=== PATIENT | male | born 1970 | race Two or more races ===

== ENCOUNTER 2024-05-22 22:20 | Emergency (ER) | payer MEDICAID, SELFPAY ==
[2024-05-22 22:21] VITALS: BMI 40.9
[2024-05-22 22:27] VITALS: BP 153/92; PULSE 86; RESP 18; TEMP 36.8; O2SAT 96
--- NOTE | 2024-05-22 22:50 | PD.EDRME ---
Rapid Medical Screening Exam RME Arrival date/time: 05/22/24 22:20 53M with history of DM (pills only) presents to ED with 540 BS and some generalized weakness. Chief Complaint: Recheck/Abnormal Lab/Rx Time Seen by Provider: 05/22/24 23:39 Vital signs: Vital Signs Temperature 98.3 F 05/22/24 22:27 Pulse Rate 86 05/22/24 22:27 Respiratory Rate 18 05/22/24 22:27 Blood Pressure 153/92 H 05/22/24 22:27 Pulse Oximetry (%) 96 05/22/24 22:27 Oxygen Delivery Method Room Air 05/22/24 22:27
[2024-05-22 23:05] LABS: Beta Hydroxybutyrate 0.1 mmol/L (<0.6)
[2024-05-22 23:06] LABS: Basophils # (Auto) 0.1 Thou/mm3 (0.0-0.2); Basophils % (Auto) 1 % (0-2.5); Eosinophils # (Auto) 0.4 Thou/mm3 (0.0-0.5); Eosinophils % (Auto) 7 % (0-10); Hematocrit 41.2 % (41.0-53.0); Hemoglobin 14.6 g/dL (13.5-16.0); Immature Granulocytes % (Auto) 0 % (0-0); Immature Granulocytes Auto 0.02 Thou/mm3 (0.00-0.00); Lymphocytes # (Auto) 2.4 Thou/mm3 (1.0-4.8); Lymphocytes % (Auto) 41 % (10-50); Mean Corpuscular HGB Conc 35.4 g/dl (31.0-37.0); Mean Corpuscular Hemoglobin 30.5 pg (25.0-35.0); Mean Corpuscular Volume 86 fL (80-100); Monocytes # (Auto) 0.6 Thou/mm3 (0.0-0.8); Monocytes % (Auto) 10 % (0-12); Neutrophils # (Auto) 2.4 Thou/mm3 (1.8-7.7); Neutrophils % (Auto) 40 % (37-80); Nucleated Red Blood Cell % 0 /100 WBC (0); Platelet Count 146 Thou/mm3 (140-440); RDW Standard Deviation 37.1 fL (35.1-43.9); Red Blood Count 4.79 Miln/mm3 (4.50-5.90); White Blood Count 5.9 Thou/mm3 (3.8-10.6)
[2024-05-22 23:36] LABS: Alanine Aminotransferase 106 U/L (10-49); Albumin, Serum 4.3 gm/dL (3.5-5.0); Albumin/Globulin Ratio 1.4 (1.2-2.2); Alkaline Phosphatase 51 U/L (46-116); Anion Gap 5 (7-16); Aspartate Amino Transferase 50 U/L (0-34); BUN/Creatinine Ratio 12 Ratio (12-20); Blood Urea Nitrogen 13 mg/dL (9-23); Calcium 10.1 mg/dL (8.3-10.6); Calcium (Corrected) 10.1 mg/dL (8.5-10.1); Carbon Dioxide 27.4 mMol/L (20.0-31.0); Chloride 101 mMol/L (98-107); Creatinine (Component) 1.1 mg/dL (0.6-1.3); Estimated Creatinine Clearance 90.6 mL/min (>60); Osmolality,Calculated 287 (275-295); Potassium 4.2 mMol/L (3.4-5.1); Sodium 133 mMol/L (136-145); Total Protein 7.3 gm/dL (5.7-8.2); eGFR > 60 See Note
[2024-05-22 23:37] LABS: Glucose 477 mg/dL (74-106)
[2024-05-22 23:39] LABS: Bilirubin,Total 0.6 mg/dL (0.3-1.2)
--- NOTE | 2024-05-22 23:41 | PD.EDRECHK ---
ED Recheck Abnl Lab Rx-RME/HPI General Chief Complaint: Recheck/Abnormal Lab/Rx Stated Complaint: BS 540 Time Seen by Provider: 05/22/24 23:39 Arrival date/time: 05/22/24 22:20 53M with history of HTN and DM (pills only) presents to ED with 540 BS and some generalized weakness. Patient denies AMS, N/V, and SOB. Limitations: no limitations Related Data Home Medications ?Medication ?Instructions ?Recorded ?Confirmed metformin 1,000 mg tablet 1,000 mg PO BID 08/29/22 08/29/22 Allergies Allergy/AdvReac Type Severity Reaction Status Date / Time No Known Allergies Allergy Verified 09/08/17 11:10 Review of Systems Review of Systems Systems Reviewed: All systems reviewed, normal except as documented Constitutional Constitutional: Reports system reviewed and no additional complaints, except as documented, Reports as per HPI, Denies fever(s), Denies headache(s) and Reports weakness ENT Ears, Nose, Mouth, and Throat: Denies disequilibrium and Denies headache(s) Cardiovascular Cardiovascular: Reports system reviewed and no additional complaints, except as documented, Denies chest pain and Denies dyspnea Respiratory Respiratory: Reports system reviewed and no additional complaints, except as documented, Denies cough and Denies dyspnea Gastrointestinal Gastrointestinal: Reports system reviewed and no additional complaints, except as documented, Denies abdominal pain, Denies nausea and Denies vomiting Neurologic Neurologic: Reports system reviewed and no additional complaints, except as documented, Denies confusion, Denies disequilibrium, Denies headache(s) and Reports weakness Psychiatric Psychiatric: Denies confusion Past Medical History Past Medical History CARDIAC: Positive Hypertension; Negative Congestive Heart Failure RESPIRATORY: Negative Chronic Obstructive Pulmonary Disease (COPD) GENITOURINARY: Negative Renal Disease ENDOCRINE: Positive Diabetes Mellitus Type 2; Negative Diabetes Mellitus Type 1 Social History SMOKING STATUS: Current every day smoker ED Exam General Limitations: Present no limitations General appearance: Present alert and in no apparent distress Head Head exam: Present atraumatic Eye Eye exam: Present normal appearance, PERRL and EOMI ENT ENT exam: Present normal exam, normal oropharynx and mucous membranes moist Neck Neck exam: Present normal inspection, full ROM and trachea midline Chest Chest inspection: Present normal inspection and symmetric chest wall rise Respiratory Respiratory exam: Present normal lung sounds bilaterally Cardiovascular Cardiovascular exam: Present regular rate, normal rhythm and normal heart sounds Abdominal Exam Abdominal exam: Present soft and normal bowel sounds Extremities Exam Extremities exam: Present normal inspection and full ROM Back Exam Back exam: Present normal inspection and full ROM Neurological Exam Neurological exam: Present alert, oriented X3 and CN II-XII intact Psychiatric Psychiatric exam: Present normal affect and normal mood Skin Skin exam: Present warm, dry, intact and normal color Course Quality Measures none Orders Category Date Time Status Beta Hydroxybutyrate Stat Lab 05/22/24 22:56 Completed CBC Stat Lab 05/22/24 22:56 Completed CMP [Comprehensive Metabolic Panel] Stat Lab 05/22/24 22:56 Completed Insulin Regular Med 05/22/24 23:42 Discontinued 10 unit SC X1 ONE Vital Signs Vital signs: Vital Signs Temperature 98.3 F 05/22/24 22:27 Pulse Rate 86 05/22/24 22:27 Respiratory Rate 18 05/22/24 22:27 Blood Pressure 153/92 H 05/22/24 22:27 Pulse Oximetry (%) 96 05/22/24 22:27 Oxygen Delivery Method Room Air 05/22/24 22:27 O2 at 96% on RA and WNLs Recheck / Abnormal Lab / Rx MDM Narrative MDM Narrative:: 53M with history of HTN and DM (pills only) presents to ED with 540 BS and some generalized weakness. Patient denies AMS, N/V, and SOB. Physical exam reveals clear lungs and RRR. No ab tenderness. Patient is afebrile, calm, and alert. No leukocytosis. Glucose 477 with pseudohyponatremia, but normal anion gap and beta hydroxy. Given 10 units insulin SC. Re-eval BS @ Given area counselor to follow-up with PCP for glycemic control. Patient data External records reviewed:: [facility] previous records Clinical information provided by:: patient Social determinants that could affect healthcare access:: none Patient has the following chronic illnesses:: DM and HTN How is presenting disease/condition affected by chronic disease/condition?: caused by Evaluation data The following diagnostics were reviewed and interpreted by me:: lab results Lab and/or radiology exams considered but not ordered:: ordered Interpretation Summary: above Medications / Prescriptions Medications or Prescriptions considered but not ordered:: ordered Medication administrations:: Medication Administration History Discontinued Medications Insulin Human Regular (Insulin Hum Regular 1 Unit/0.01 Ml (Per Unit)) 10 unit SC X1 ONE Stop: 05/22/24 23:43 above Consultations Consultation(s) initiated? (list below): No Diagnosis Recheck Differential Diagnosis: encounter for medication refill, encounter for wound recheck, encounter for recheck of burn, encounter for removal of sutures, warfarin-induced coagulopathy and other (elevated glucose due to DM, DKA/HHS) Most likely diagnosis given after review of the tests above:: elevated glucose due to DM Admission Indicated Admission indicated?: not indicated Admission Request Was there a request for admission?: No Disposition Plan Disposition Plan: Discharge Discharge Attestation Discharge Attestation: The patient and all family members were given an opportunity to ask questions and understood the discharge instructions. Discharge instructions specifically effects, indications for sooner follow up or return to the emergency department, and the expected course of current diagnosis. Patient condition: Stable Discharge Plan Prescriptions/Referrals Prescriptions/Med Rec: No Action metformin 1,000 mg Tablet 1,000 mg PO BID Patient/Caregiver Discharge Instructions Print Language: Korean
--- NOTE | 2024-05-22 23:52 | PD.EDRME ---
Rapid Medical Screening Exam RME Arrival date/time: 05/22/24 22:20 53M with history of HTN and DM (pills only) presents to ED with 540 BS and some generalized weakness. Patient denies AMS, N/V, and SOB. Chief Complaint: Recheck/Abnormal Lab/Rx Time Seen by Provider: 05/22/24 23:39 Vital signs: Vital Signs Temperature 98.3 F 05/22/24 22:27 Pulse Rate 86 05/22/24 22:27 Respiratory Rate 18 05/22/24 22:27 Blood Pressure 153/92 H 05/22/24 22:27 Pulse Oximetry (%) 96 05/22/24 22:27 Oxygen Delivery Method Room Air 05/22/24 22:27
[2024-05-23] MEDS: SODIUM CHLORIDE 0.9% 1000 ML 1,000 ML 999 ML IV ×2 (00:14→01:23)
[2024-05-23] MEDS: INSULIN HUM REGULAR 1 UNIT/0.01 ML (PER UNIT) 10 UNIT IV (00:18)
--- NOTE | 2024-05-23 00:32 | PD.EDRECHK ---
ED Recheck Abnl Lab Rx-RME/HPI General Chief Complaint: Recheck/Abnormal Lab/Rx Stated Complaint: BS 540 Time Seen by Provider: 05/22/24 23:39 Arrival date/time: 05/22/24 22:20 RME / HPI RME / HPI narrative: 05/22/24 22:20 A 53-year-old male patient with past medical history of hypertension, diabetes mellitus only on metformin presented to the ED due to generalized weakness and blood sugar measurement at home of 570. Patient reported that he use his medications as prescribed, he reported that he has been on Ozempic for a while however his provider discontinued it. Patient reported that he might ate something has a lot of sugar today. Patient denied any blurry vision, nausea or vomiting, diarrhea or constipation denied any chest pain or abdominal pain. Related Data Home Medications ?Medication ?Instructions ?Recorded ?Confirmed metformin 1,000 mg tablet 1,000 mg PO BID 08/29/22 08/29/22 Previous Rx's ?Medication ?Instructions ?Recorded sitagliptin phosphate 100 mg 100 mg PO QDAY #14 tabs 05/23/24 tablet (Januvia) Allergies Allergy/AdvReac Type Severity Reaction Status Date / Time No Known Allergies Allergy Verified 09/08/17 11:10 ED Exam Narrative Physical exam: GEN: AOx3, able to speak full sentences HEENT: NC/AC, oral mucosa moist, neck supple CVS: RRR, S1-S2 present, no murmurs appreciated RESP: CTAB GI: soft,non distended, non tender, NBS MSK: able to move all 4 limbs, no lower extremity edema SKIN: warm and dry HVAC R TECH: CN II-XII and Sensation grossly intact. Course Quality Measures none Orders Category Date Time Status Bedside Blood Glucose NOW Care 05/23/24 01:15 Active Beta Hydroxybutyrate Stat Lab 05/22/24 22:56 Completed CBC Stat Lab 05/22/24 22:56 Completed CMP [Comprehensive Metabolic Panel] Stat Lab 05/22/24 22:56 Completed Insulin Regular Med 05/23/24 00:01 Discontinued 10 unit IV X1 ONE Insulin Regular Med 05/22/24 23:42 Discontinued 10 unit SC X1 ONE Sodium Chloride 0.9% 1000 ml [Ns] 1,000 ml Med 05/22/24 23:48 Discontinued IV 999 mls/hr Sodium Chloride 0.9% 1000 ml [Ns] 1,000 ml Med 05/22/24 23:51 Discontinued IV 999 mls/hr Sodium Chloride 0.9% 1000 ml [Ns] 1,000 ml Med 05/23/24 00:29 Discontinued IV 999 mls/hr Vital Signs Vital signs: Vital Signs Temperature 98.3 F 05/22/24 22:27 Pulse Rate 86 05/22/24 22:27 Respiratory Rate 18 05/22/24 22:27 Blood Pressure 153/92 H 05/22/24 22:27 Pulse Oximetry (%) 96 05/22/24 22:27 Oxygen Delivery Method Room Air 05/22/24 22:27 Recheck / Abnormal Lab / Rx Patient data External records reviewed:: [facility] previous records Clinical information provided by:: patient Social determinants that could affect healthcare access:: none Patient has the following chronic illnesses:: Hypertension Diabetes mellitus How is presenting disease/condition affected by chronic disease/condition?: caused by Evaluation data The following diagnostics were reviewed and interpreted by me:: lab results, radiology exam(s) and EKG tracing(s) Lab and/or radiology exams considered but not ordered:: None Interpretation Summary: Hyperglycemia, noncomplicated Medications / Prescriptions Medications or Prescriptions considered but not ordered:: None Medication administrations:: Medication Administration History Discontinued Medications Sodium Chloride (Ns) 1,000 mls @ 999 mls/hr IV .Q1H1M ONE Stop: 05/23/24 00:48 Last Admin: 05/22/24 23:58 Dose: Not Given Documented By: JENNY Non-Admin Reason: Duplicate Medication on eMAR Sodium Chloride (Ns) 1,000 mls @ 999 mls/hr IV .Q1H1M ONE Stop: 05/23/24 00:51 Last Infusion: 05/23/24 01:02 Dose: Infused Documented By: Admin: 05/23/24 00:14 Dose: 999 mls/hr Documented By: Sodium Chloride (Ns) 1,000 mls @ 999 mls/hr IV .Q1H1M ONE Stop: 05/23/24 01:29 Last Admin: 05/23/24 01:23 Dose: 999 mls/hr Documented By: Insulin Human Regular (Insulin Hum Regular 1 Unit/0.01 Ml (Per Unit)) 10 unit SC X1 ONE Stop: 05/22/24 23:43 Last Admin: 05/22/24 23:58 Dose: Not Given Documented By: JENNY Non-Admin Reason: Discontinued Insulin Human Regular (Insulin Hum Regular 1 Unit/0.01 Ml (Per Unit)) 10 unit IV X1 ONE Stop: 05/23/24 00:02 Last Admin: 05/23/24 00:18 Dose: 10 unit Documented By: CRISTI Co-signed By: ADELE As above as given Consultations Consultation(s) initiated? (list below): No Diagnosis Recheck Differential Diagnosis: other (Hyperglycemia) Most likely diagnosis given after review of the tests above:: Noncomplicated hyperglycemia Admission Indicated Admission indicated?: not indicated Admission Request Was there a request for admission?: No Disposition Plan Disposition Plan: Discharge Discharge Attestation Discharge Attestation: The patient and all family members were given an opportunity to ask questions and understood the discharge instructions. Discharge instructions specifically effects, indications for sooner follow up or return to the emergency department, and the expected course of current diagnosis. Patient condition: Stable Discharge Plan Plan Patient Disposition: HOME (Self Care) Health Concerns: On evaluation we noticed that you have increased blood sugar (hyperglycemia) We believe that metformin is not sufficient to control her blood sugar, for that reason we recommend to follow-up with her primary care physician to adjust your diabetes medications. If you do not have a primary care physician you can follow-up with us at the [facility] at [facility] [address], [place], [place] Continue using your medications as prescribed Prescriptions/Referrals Prescriptions/Med Rec: New Januvia 100 mg tablet 100 mg PO QDAY Qty: 14 0RF No Action metformin 1,000 mg Tablet 1,000 mg PO BID Problem List Clinical Impression: Acute hyperglycemia Patient/Caregiver Discharge Instructions Print Language: Ukrainian Stand Alone Forms: Bety Award Info., Patient Portal Info Letter
== END 2024-05-23 02:16 | disposition home or self-care (01) ==
LOC: SERX 05-23 04:53
PROVIDERS: Physician Assistant; Emergency Provider Emergency Medicine; PCP Family Medicine
DX: E11.65 Type 2 diabetes mellitus with hyperglycemia (principal); Z79.84 Long term (current) use of oral hypoglycemic drugs
CPT/HCPCS: 36415; 80053; 82010; 85025; 96360; 99284; J1815; J7030